=== PATIENT | female | born 1950 | race Caucasian/White ===

== ENCOUNTER 2017-08-08 08:47 | Observation (INO) | payer OTHER ==
[~2017-08-08] VITALS: Ht 157.5 cm; Wt 64.4 kg
[2017-08-08] MEDS ORDERED: HEPARIN SODIUM - SQ 10,000 UNITS/ML VIAL SQ SCH (09:15)
[2017-08-08] MEDS ORDERED: PRAV80TA2 PO (09:26)
[2017-08-08] MEDS ORDERED: METO50TA PO (09:26)
[2017-08-08] MEDS ORDERED: ceFAZolin 1,000 MG/NS 100 ML IV SCH ×2 (09:30)
[2017-08-08] MEDS ORDERED: POVIDONE IODINE 5% (ANTISEPSIS KIT) 4 APPLICATIONS EACH NARE PRN (09:45)
[2017-08-08] MEDS ORDERED: LACTATED RINGER'S 1000 ML IV PRN (09:45)
[2017-08-08] MEDS ORDERED: METOPROLOL TARTRATE 25 MG TAB PO PRN (09:45)
[2017-08-08] MEDS ORDERED: CHLORHEXIDINE GLUCONATE 2 % 1 PACK (2 CLOTHS) TOPICAL PRN (09:45)
[2017-08-08] MEDS ORDERED: SODIUM CHLORID 0.9% 500 ML IV PRN (09:45)
[2017-08-08] MEDS ORDERED: PROPOFOL 200 MG/20 ML AMP IV ONE (12:00)
[2017-08-08] MEDS ORDERED: DEXAMETHASONE SOD PHOS 4 MG/ML VIAL IV ONE (12:00)
[2017-08-08] MEDS ORDERED: ONDANSETRON HCL 4 MG/2 ML VIAL IV ONE (12:00)
[2017-08-08] MEDS ORDERED: LABETALOL HCL 100 MG/20 ML VIAL IV ONE (12:00)
[2017-08-08] MEDS ORDERED: LIDOCAINE HCL 1% PF 5 ML SYRINGE OTHER ONE (12:00)
[2017-08-08] MEDS ORDERED: METOPROLOL TARTRATE 5 MG/5 ML VIAL IV ONE (12:00)
[2017-08-08] MEDS ORDERED: GLYCOPYRROLATE 1 MG/5 ML SYRINGE IV PUSH ONE (12:00)
[2017-08-08] MEDS ORDERED: ROCURONIUM INJ 50 MG/5 ML SYRINGE IV PUSH ONE (12:00)
[2017-08-08] MEDS ORDERED: LIDOCAINE 1%/EPINEPHrine 1:100,000 SOLN 30 ML VIAL ONE (12:55)
[2017-08-08] MEDS ORDERED: LIDOCAINE 1%/EPINEPHrine 1:100,000 SOLN 50 ML VIAL ONE (12:56)
[2017-08-08] MEDS ORDERED: ARTIFICIAL TEARS OPTH OINT 3.5 APPLIC/3.5 GM TUBO ONE (12:59)
[2017-08-08] MEDS ORDERED: ACETAMINOPHEN 1000 MG/100 ML 100 ML IV ONE (13:24)
[2017-08-08] MEDS ORDERED: DO NOT ADM ANY ANTICOAGULANT DRUGS PRN (16:04)
[2017-08-08] MEDS ORDERED: LORazepam 0.5 MG TAB PO PRN (16:15)
[2017-08-08] MEDS ORDERED: diphenhydrAMINE HCL 25 MG CAP PO PRN (16:15)
[2017-08-08] MEDS ORDERED: oxyCODONE/ACETAMINOPHEN 5 MG/325 MG TAB PO PRN (16:15)
[2017-08-08] MEDS ORDERED: ONDANSETRON HCL 4 MG/2 ML VIAL IVP PRN (16:15)
[2017-08-08] MEDS ORDERED: MIDAZOLAM HCL 2 MG/2 ML VIAL ONE (16:18)
[2017-08-08] MEDS ORDERED: *ONDANSETRON 4 MG VIAL PERIprocedural Use ONLY ONE (16:37)
[2017-08-08] MEDS ORDERED: *PROMETHAZINE 25 MG/ML VIAL PERIprocedural use ONLY ONE (16:49)
[2017-08-08] MEDS ORDERED: *morphine SULFATE 4 MG/ML PERIprocedure ONLY ONE (16:53)
[2017-08-08] MEDS: D5-1/2 NS + KCL 20 MEQ INJ 1,000 ML IV SCH (17:00)
[2017-08-08] MEDS: KETOROLAC TROMETHAMINE 30 MG/ML (IVP) VIAL IVP SCH (18:44)
[2017-08-08] MEDS: SODIUM CHLORIDE 0.9% FLUSH 10 ML FLUSH IV FLUSH SCH (21:00)
[2017-08-08] MEDS ORDERED: SUGAMMADEX SODIUM 200 MG/2 ML VIAL IV PUSH ONE (22:55)
[2017-08-09] VITALS: BP 148/75; PULSE 67; RESP 16; TEMP 98.2; O2SAT 97
[2017-08-09] MEDS: KETOROLAC TROMETHAMINE 30 MG/ML (IVP) VIAL IVP SCH ×3 (00:16→12:38)
[2017-08-09] MEDS: SODIUM CHLORIDE 0.9% FLUSH 10 ML FLUSH IV FLUSH PRN ×2 (00:17→06:21)
[2017-08-09] MEDS: oxyCODONE/ACETAMINOPHEN 5 MG/325 MG TAB PO PRN ×2 (00:17→06:35)
[2017-08-09] MEDS: D5-1/2 NS + KCL 20 MEQ INJ 1,000 ML IV SCH (02:36)
[2017-08-09 04:00] VITALS: BP 118/67; PULSE 66; RESP 16; TEMP 98.2; O2SAT 97
[2017-08-09 06:33] LABS: BASOPHIL % 0.2 % (0.0-2.0); BICARBONATE 27.3 MEQ/L (21.0-32.0); CALCIUM 8.8 MG/DL (8.5-10.1); CREATININE 0.64 MG/DL (0.50-1.00); HEMATOCRIT 39.4 % (35.0-46.0); HEMOGLOBIN 13.3 GM/DL (11.6-15.3); LYMPH % 8.4 % (9.0-44.0); LYMPHOCYTE # 0.9 TH/MM3 (1.0-4.8); MEAN CELL VOLUME 88.2 FL (80.0-100.0); MEAN CORPUSCULAR HEMOGLOBIN 29.8 PG (27.0-34.0); MEAN CORPUSCULAR HGB CONC 33.8 % (32.0-36.0); MEAN PLATELET VOLUME 8.9 FL (7.0-11.0); MONO % 8.6 % (0.0-8.0); MONOCYTE # 0.9 TH/MM3 (0-0.9); NEUT % 82.8 % (16.0-70.0); PLATELET COUNT 177 TH/MM3 (150-450); RED BLOOD COUNT 4.47 MIL/MM3 (4.00-5.30); RED CELL DISTRIBUTION WIDTH 13.7 % (11.6-17.2); WHITE BLOOD COUNT 10.8 TH/MM3 (4.0-11.0)
[2017-08-09] MEDS ORDERED: OXYC1TAB63 PO (06:37)
--- NOTE | 2017-08-09 08:23 | MP ---
cc: Donna Dunlap MD, Carhine Deshmukh, Pratima DATE OF OPERATION: 08/08/2017 DATE OF PROCEDURE: 08/08/2017 PREOPERATIVE DIAGNOSES: 1. Complex adnexal mass. 2. Status post prior hysterectomy. POSTOPERATIVE DIAGNOSES: 1. Right ovarian cystadenofibroma. 2. Status post prior hysterectomy. PROCEDURE: Robotic-assisted laparoscopic bilateral salpingo-oophorectomy (with resection of a 6-7 cm complex right ovarian mass). SURGEON: Donna Dunlap MD FINANCE BROKER: [place] certified first assistant. ANESTHESIA: General endotracheal anesthesia. ESTIMATED BLOOD LOSS: 50 mL IV FLUIDS: 1500 mL URINE OUTPUT: 500 mL INDICATIONS FOR PROCEDURE: A 66-year-old female found on exam and imaging to have a complex pelvic mass thought to be of ovarian origin. Her CA-125 slightly elevated at 50. Her OVA1 screening test slightly above the normal range. She was counseled regarding options and is in favor of surgical management. She is seen again in the preoperative holding area where she is accompanied by family members. The findings and plan are reviewed again, questions were asked and answered. She expressed good understanding and would like to move forward with surgery. FINDINGS: The right ovary is enlarged, approximately 6-7 cm, complex in nature, but the capsule was smooth. There was cystic and solid component. It was fairly mobile raising the possibility of prior torsion intermittently as an explanation for her previous pain. Left tube and ovary grossly appears normal. There were some adhesions to the left pelvic sidewall. There were some adhesions between the colon and the left pelvic sidewall. Uterus and cervix were surgically absent. The peritoneal cavity was otherwise normal. Liver and diaphragm edges are smooth. The omentum, large and small bowel and adjacent mesentery appeared normal, without implants. There was no adenopathy. Frozen section of the right ovary was consistent with a benign serous cystadenofibroma. No evidence of malignancy. PROCEDURE: She was taken to the operating room and placed in dorsal lithotomy position, after general endotracheal anesthesia was administered. Timeout was undertaken. She was identified by site recognition and hospital ID bracelet. The proposed procedure was reviewed and confirmed. She was carefully positioned in padded Prasad stirrups. Her arms were padded and secured to the sides. She was further secured to the operating table with egg crate padding and tape in across chest over the shoulder fashion. All alignments were inspected and noted to be properly aligned with no pressure points. She was prepped and draped in sterile fashion. Mayen catheter in and out placement in the bladder confirmed that an orogastric tube was in the stomach on suction. We completed draping in anticipation of laparoscopy. With manual elevation of the abdominal wall and direct laparoscopic visualization, a 5 mm cannula was placed in the left upper quadrant. Carbon dioxide gas was insufflated. Under guidance of 12 mm cannula was placed in the midline above the umbilicus, 8 mm cannula was placed in the right upper abdomen, left lateral abdomen. The original 5 mm exchanged for an 8 mm cannula. She was placed in Trendelenburg position. Peritoneal washings were obtained for cytology. The anatomy was surveyed with findings as described above. The small bowel was folded back on its mesenteric root and 3 Ray-London sponges were placed around the root of the small bowel mesentery. The robotic system brought into the operative field, attached in the usual fashion. Monopolar scissors, fenestrated bipolar forceps and ProGrasp manipulators placed in arms number 1, 2 and 3 respectively and I took my place at the surgeon's console. Adhesions were taken down against the left pelvic sidewall. The colon was mobilized medially to free it from its attachments to the sidewall. Retroperitoneal dissection was carried out. The residual round ligament was identified and adhesions were from the round ligament as the retroperitoneal dissection was carried proximally and dissection allowed identification of the ureter on the medial leaf of the peritoneum. The intervening peritoneum below the ovary was opened and the infundibulopelvic ligament was elevated ventrally as dissection was carried out to help further retract the ureter posteriorly as the infundibulopelvic ligament was elevated and it was dissected to the level of the pelvic brim where it was cauterized and transected. Distal dissection now isolated the adhesions around the residual utero-ovarian ligament, which were taken down with sharp dissection focal cautery and the ligament was cauterized and transected thereby removing the left tube and ovary, placed on a Ray-London sponge in the right pericolic gutter for later retrieval. Attention was directed toward the right side. The residual right round ligament was isolated. It was adherent to the adnexa, so the round ligament was again cauterized and transected. Retroperitoneal dissection was carried out proximally and dissection retroperitoneal allowed identification of the right ureter. A window was made in the peritoneum below the ovary and dissection was carried out proximally to allow sharp dissection, and then blunt retraction to help retract the ureter posteriorly as the infundibulopelvic ligament was elevated anteriorly and the dissection was carried to the level of the pelvic brim where the infundibulopelvic ligament was cauterized and transected. Distal dissection freed up additional adhesions to the adnexa and the residual utero-ovarian ligament was isolated, cauterized and transected thereby removing the right tube and ovary which were placed in the pericolic gutter for later retrieval. The pelvis was thoroughly irrigated. Inspection noted every site to be hemostatic. There was good peristalsis of the ureters along the course throughout the pelvis. Given the overall relatively benign appearance and pending pathology, it was felt that all reasonable surgical objectives had been completed. Therefore, the robotic instruments were removed. The robotic system was disengaged from the operative field and I reentered the bedside under sterile condition. A 12 cm EndoCatch bag was used to capture the bilateral tubes and ovary specimens. The bag was closed and brought to the abdominal wall. The cystic component of the mass was drained. The solid component was grasped with ring forceps and the specimens were delivered through the midline incision contained within the endoscopic bag and sent for frozen section analysis. Now each of the 3 Ray-London sponges that were placed in the peritoneal cavity were grasped and removed individually. Each were inspected and noted to be removed in their entirety. Visual inspection confirmed there were no remaining foreign objects in the peritoneal cavity. Preliminary counts were correct and attention was directed toward closing. The 12 mm fascia was closed with a fascial closing needle apparatus. A 0 Vicryl suture was tied securely which rendered the fascia completely airtight and hemostatic. The remaining cannulas were withdrawn. Carbon dioxide gas was removed from the peritoneal cavity. 3-0 Vicryl subcutaneous and 3-0 Vicryl subcuticular were used to close these incisions. Small bleeding noted in the left lateral incision which required additional deep sutures which rendered it hemostatic with a small contained stable hematoma. Dry sterile dressings were placed, including a pressure dressing over the left lower incision. Pelvic exam confirmed that there were no remaining foreign objects in the vagina. She was returned to dorsal supine position. Preliminary and final counts were correct. Anesthesia was reversed once we heard from the pathologist (Dr. Kary Gabriel) reported a benign cystadenofibroma, no evidence of malignancy. Accordingly, she was pending reversal of anesthesia, when I left the operating room to precede her to the Postanesthesia Care Unit. MD HENRIK Mohan/SAJI , 04:57 AM , 08:23 AM
[2017-08-09 08:30] VITALS: BP 123/69; PULSE 64; RESP 16; TEMP 98.2; O2SAT 96
[2017-08-09] MEDS ORDERED: METOPROLOL TARTRATE 50 MG TAB PO SCH (09:00)
[2017-08-09] MEDS ORDERED: PRAVASTATIN SOD 80 MG TAB PO SCH (09:00)
--- NOTE | 2017-08-09 09:47 | MD ---
cc: Donna Dunlap MD, Carhine MD Deshmukh,Allison MARQUES DATE OF DISCHARGE: 08/09/2017 DATE OF ADMISSION: 08/08/2017 DATE OF DISCHARGE: 08/09/2017. PROCEDURE: 08/08/2017: Robotic-assisted laparoscopic bilateral salpingo-oophorectomy (with resection of right ovarian mass). HOSPITAL COURSE: She did well in the early postoperative period, hemodynamically stable, tolerating oral intake. Mayen catheter was removed pending voiding. Ins and outs: 3631/1800. LABS THIS MORNING: H and H 13.3 and 39.4. Electrolytes essentially normal. BUN and creatinine 8 and 0.64. PHYSICAL EXAMINATION: VITAL SIGNS: Afebrile, pulse 66-69, respirations 12-18, blood pressure 118-154/63-74, O2 saturations greater than or equal to 97%. GENERAL: Alert and oriented x3. LUNGS: Clear. HEART: Regular rate and rhythm. ABDOMEN: Soft. Incisions clean and dry. HOSPITAL COURSE: Postoperative day #1: Findings at the time of surgery, steps taken. Preliminary pathology consistent with benign cystadenofibroma from the right ovary. Discussed. Activities, restrictions again reviewed. Questions were asked and answered. She expressed good understanding. PLAN: Anticipate she will be ready for discharge to home today. DISCHARGE INSTRUCTIONS: Office number is again made available, she is to contact our office to ensure she has a scheduled followup in 2 weeks. She is to resume her prior medications and she will have a prescription for Percocet for pain as needed. MD HENRIK Mohan/LUIS MIGUEL , 06:40 AM , 09:47 AM
[2017-08-09] MEDS: SODIUM CHLORIDE 0.9% FLUSH 10 ML FLUSH IV FLUSH SCH (12:38)
== END 2017-08-09 13:36 | disposition home or self-care (01) ==
LOC: HSDC 08:47 → HCIN 23:24
PROVIDERS: ADMIT Obstetrics & Gynecology Gynecologic Oncology; ATTEND Obstetrics & Gynecology Gynecologic Oncology
DX: D27.0 Benign neoplasm of right ovary (principal); D27.1 Benign neoplasm of left ovary; N73.6 Female pelvic peritoneal adhesions (postinfective); I10 Essential (primary) hypertension; Z90.710 Acquired absence of both cervix and uterus
CPT/HCPCS: 00840; 58661; 80048; 85025; 86850; 86900; 86901; 88112; 88305; 88331; 94150; 96361; 96374; 96376; G0378; J0131; J1100; J1885; J2250; J2270; J2405; J2550; J3010; J3480